=== PATIENT | female | born 1955 | race Caucasian/White ===

== ENCOUNTER 2023-08-24 20:24 | Emergency (ER) | payer MEDICARE, SELFPAY ==
[2023-08-24 20:26] VITALS: BP 150/90
--- NOTE | 2023-08-24 21:23 | ED.SKININJ ---
HPI-Injury
General
Chief Complaint: Bite
Time Seen by Provider: 08/24/23 20:35
Travel History
Have you had any contact with someone who has COVID-19?: No
Do you have any symptoms of coronavirus? Fever > 100 degrees, chills, cough, shortness of breath, sore throat, loss of taste or smell, muscle aches, or headache?: No
History of Present Illness-Injury
Initial Injury comments:
68-year-old female presents due to itching, redness, and swelling of the right dorsal hand as well as the right medial elbow after being bitten by a bug on the hand yesterday. Denies any fevers or chills. She was prescribed steroids by her primary
care physician but she is apprehensive to take these. She has been using Benadryl 25 mg every 6 hours without relief. No fevers
Past History
Social History
Tobacco: Non-smoker
Alcohol: None
Personal: Single
Living: alone
Employment: Employed (sales)
Review of Systems
Review of Systems
Allergies reviewed?: Yes
All Other Systems: ROS reviewed and negative except as documented in HPI and ROS
Phy Exam
Physical Exam
Physical Exam:
GEN: Well appearing, NAD, WDWN
HEENT: Oral mucosa moist, no scleral icterus
Cardiac: Regular rate
Lung: No respiratory distress, no tachypnea
MSK: No gross deformity or injuries
Skin: Good color, no pallor or jaundice. Diffuse erythema of the right dorsal hand does not extend into the fingers or beyond the wrist, no volar swelling. Erythema and soft swelling of the right medial elbow, right elbow range of motion is
normal, no olecranon bursitis
Neuro: AO x3, moves all extremities freely
Psych: Calm, cooperative
Course
Vital Signs
Initial and Last Documented VS:
Initial Vital Signs
Temp Pulse Resp BP Pulse Ox
98.7 F 88 22 150/90 96
08/24/23 20:26 08/24/23 20:26 08/24/23 20:26 08/24/23 20:26 08/24/23 20:26
Last Documented Vital Signs
Temp Pulse Resp BP Pulse Ox
98.7 F 88 22 150/90 96
08/24/23 20:26 08/24/23 20:26 08/24/23 20:26 08/24/23 20:26 08/24/23 20:26
MDM/Problems Addressed
MDM/Problems Addressed:
Advised the patient that this is likely a histamine reaction and she should try the steroids given that Benadryl has not helped, no indication for antibiotics
*Critical Care Note
Total Time (30-74mins, 75-104mins- exclusive of procedures): Not Applicable
ED Attending Note
-
Portions of this chart may have been created with voice recognition software.� Occasional wrong word or��sound alike� substitutions may have occurred due to the inherent limitations of voice recognition software.
Discharge Plan
Departure
Patient Disposition: Home (Routine Discharge)
Date of Disposition: 08/24/23
Time of Disposition: 21:23
Patient with high blood pressure during this ER visit?: No
Discharge Problem:
Insect bite
Instructions: Insect Bites and Stings ED
Activity Restrictions/Additional Instructions:
Please take the steroids as your were prescribed
Interventions
Interventions:
*Risk Screen - Suicide Last Done: 08/24/23 20:26
*Neglect/Abuse Screening Last Done: 08/24/23 20:26
*Nursing Disposition Last Done: 08/24/23 21:39
ED-Skin Assessment Last Done: 08/24/23 20:50
Discharge Date and Time
Discharge Date/Time: 08/24/23 21:39
Print Language: DIVEHI
== END 2023-08-24 21:39 | disposition home or self-care (01) ==
LOC: EMR 20:24
PROVIDERS: EMERGENCY PHYSICIAN Emergency Medicine; FAMILY PHYSICIAN Family Medicine
DX: R22.31 Localized swelling, mass and lump, right upper limb (principal); L29.9 Pruritus, unspecified; L53.9 Erythematous condition, unspecified; M25.421 Effusion, right elbow; W57.XXXA Bitten or stung by nonvenomous insect and other nonvenomous arthropods, initial encounter; Z88.0 Allergy status to penicillin; Z88.2 Allergy status to sulfonamides; Z88.8 Allergy status to other drugs, medicaments and biological substances; Z88.1 Allergy status to other antibiotic agents; Z91.040 Latex allergy status
CPT/HCPCS: 99281

== ENCOUNTER 2023-08-25 12:12 | Emergency (ER) | payer MEDICARE, OTHER, SELFPAY ==
[2023-08-25 12:15] VITALS: BP 151/78
--- NOTE | 2023-08-25 12:52 | ED.GENMED ---
History of Present Illness
<Lashell Saravia PA-C - Last Filed: 08/25/23 18:01>
General
Chief Complaint: Skin Problem
Source: patient
Exam Limitations: none
Time Seen by Provider: 08/25/23 12:38
Nursing documentation reviewed up to this point in time: agreed with
Travel History
Have you had any contact with someone who has COVID-19?: No
Do you have any symptoms of coronavirus? Fever > 100 degrees, chills, cough, shortness of breath, sore throat, loss of taste or smell, muscle aches, or headache?: No
History of Present Illness
History of Present Illness:
Patient is a 68-year-old female presenting for evaluation of right hand redness and swelling. Patient was seen in the emergency department yesterday and evaluated for similar symptoms. She does believe that she was bitten by some sort of bug 2
days ago. Starting yesterday she noticed worsening swelling and redness of her right hand. She is having significant itching associated with this redness. She also has a area of swelling that she noticed on the medial side of her right elbow.
Patient was seen in urgent care yesterday morning prior to emergency department visit and prescribed a Medrol Dosepak. She does not wish to take the steroids if she can avoid it. She was instructed to take Benadryl every 4 hours. She does state
that swelling on right hand is improved since yesterday but the area on her right elbow may have worsened slightly.
Patient denies any fever, chills, pain in right upper extremity, numbness/tingling right upper extremity, shortness of breath or difficulty swallowing.
Patient does state that she is very sensitive to environmental triggers and has many allergic reactions
Past History
<Lashell Saravia PA-C - Last Filed: 08/25/23 18:01>
Social History
Tobacco: Non-smoker
Alcohol: None
Personal: Single
Living: alone
Employment: Employed (sales)
Review of Systems
<Lashell Saravia PA-C - Last Filed: 08/25/23 18:01>
Review of Systems
Allergies reviewed?: Yes
All Other Systems: ROS reviewed and negative except as documented in HPI and ROS
Phy Exam
<Lashell Saravia PA-C - Last Filed: 08/25/23 18:01>
Physical Exam
Physical Exam:
Vitals: Patient's vital signs are stable. Afebrile
General: Patient is well appearing, no acute distress. Nontoxic-appearing
Skin: Mild edema and erythema noted to right dorsal hand and right volar wrist. Large erythematous hive noted to medial aspect of right elbow. No overlying warmth, tenderness, or red streaking noted to right upper extremity. Range of motion is
fully intact in RUE without any joint tenderness. Great distal pulses. Sensation fully intact.
Head: Normocephalic, atraumatic
Eyes: Sclera nonicteric.
Throat: Protecting airway
Neck: Normal ROM, no cervical spine tenderness, no meningismus. Trachea midline
Cardiac: Regular rate and rhythm, no murmurs.
Pulm: Normal respiratory effort, no wheezes, rales, rhonchi heard on exam.
Abdomen: No abdominal tenderness.
Extremities: No evidence of cyanosis or edema. Great distal pulses of the right upper extremity. Sensation fully intact in right upper extremity
Neuro: AAOx3. CN II-XII intact. No focal neurologic deficits.
Psychiatric: Normal affect.
Course
<Lashell Saravia PA-C - Last Filed: 08/25/23 18:01>
Vital Signs
Initial and Last Documented VS:
Initial Vital Signs
Temp Pulse Resp BP Pulse Ox
98.2 F 94 18 151/78 98
08/25/23 12:15 08/25/23 12:15 08/25/23 12:15 08/25/23 12:15 08/25/23 12:15
Last Documented Vital Signs
Temp Pulse Resp BP Pulse Ox
98.2 F 94 18 151/78 98
08/25/23 12:15 08/25/23 12:15 08/25/23 12:15 08/25/23 12:15 08/25/23 12:15
<Orlando Salguero DO - Last Filed: 08/25/23 13:18>
Vital Signs
Initial and Last Documented VS:
Initial Vital Signs
Temp Pulse Resp BP Pulse Ox
98.2 F 94 18 151/78 98
08/25/23 12:15 08/25/23 12:15 08/25/23 12:15 08/25/23 12:15 08/25/23 12:15
Last Documented Vital Signs
Temp Pulse Resp BP Pulse Ox
98.2 F 94 18 151/78 98
08/25/23 12:15 08/25/23 12:15 08/25/23 12:15 08/25/23 12:15 08/25/23 12:15
<Lashell Saravia PA-C - Last Filed: 08/25/23 18:01>
MDM/Problems Addressed
Differential Diagnosis Includes:
Not limited to: Allergic reaction, hide, cellulitis, eczema, contact dermatitis
MDM/Problems Addressed:
68-year-old female presenting with redness and swelling of right hand and right elbow following bug bite. Symptoms have improved slightly with Benadryl. Patient concerned about possible infection. Patient afebrile with stable vital signs.
Physical exam as above. She does have some mild erythema and edema of her right dorsal hand and right volar wrist. There is a large hive noted at the medial aspect of the right elbow. There is no overlying warmth or significant tenderness of
right upper extremity. There is no red streaking of right upper extremity to suggest cellulitis or infectious process. Full range of motion joints without any pain�do not suspect a septic arthritis. No evidence of intraoral swelling or difficulty
breathing.
Suspect likely localized histamine/allergic reaction. No indication for antibiotic use at this time. Did discuss starting Medrol Dosepak as prescribed by urgent care. She can continue with [id number] Benadryl and try [id number]
hydrocortisone and/or anti-itch cream. Advised patient to avoid scratching as to not introduce bacteria to skin and cause infection. Return precautions discussed with patient at length. Patient comfortable with plan. All questions answered.
Chronic conditions affecting care:
N/A
Acute Exacerbation and/or Progression of Chronic Illness:
N/A
<Lashell Saravia PA-C - Last Filed: 08/25/23 18:01>
*Pulse Oximetry
Patient hypoxic: no
*EKG
Interpreted by ED Provider?: NA
*Glass Mould Cleaner Interpretation
Rate: Glass Mould Cleaner- N/A
*Critical Care Note
Total Time (30-74mins, 75-104mins- exclusive of procedures): Not Applicable
ED Attending Note
<Lashell Saravia PA-C - Last Filed: 08/25/23 18:01>
-
Portions of this chart may have been created with voice recognition software.� Occasional wrong word or��sound alike� substitutions may have occurred due to the inherent limitations of voice recognition software.
<Orlando Salguero DO - Last Filed: 08/25/23 13:18>
ED Attending Note
Patient seen and examined by attending physician: Yes
I performed the substantive portion of visit, reviewed & personally made and approve the management plan that is documented in note by myself or ALPESH.: Yes
ED Attending Note:
I have seen and evaluated the patient with a [id number] encounter. I have spoken to the advance practicer provider and involved in the medical history, the physical exam, medical decision making.
Evaluation and management service: agree unless noted differently below.
Results interpretation: agree unless noted differently below.
Focused HPI: 68-year-old female presenting with redness and swelling to her right hand. She was here yesterday and diagnosed with allergic reaction to a bug bite. She thinks the swelling has gotten worse but the color has gotten a little more red.
She went to make sure it is not infected
Physical exam: Sitting in the chair comfortably. Mild edema noted to dorsum of right hand. Range of motion intact. Very mild erythema which is likely related to her persistent scratching. Hive noted to medial aspect of right forearm
Medical Decision Making: Discussed taking steroids that she was initially prescribed but patient is hesitant due to its side effect profile. We discussed that there is no evidence of cellulitis at the moment and antibiotics would not be helpful. I
did caution her that she continues to scratch the area and she could break the skin and cause the cellulitis.
Discharge Plan
Departure
Patient Disposition: Home (Routine Discharge)
Date of Disposition: 08/25/23
Time of Disposition: 13:25
Patient with high blood pressure during this ER visit?: Yes
Condition: Good
Covid-19: Not Applicable
Discharge Problem:
Hive, Insect bite
Instructions: Hives, Insect Bites and Stings ED
Referrals:
Jacy Tineo DO [Family Provider] -
Activity Restrictions/Additional Instructions:
RETURN TO THE EMERGENCY DEPARTMENT WITH ANY CHEST PAIN OR SHORTNESS OF BREATH, ORAL SWELLING, DIFFICULTY BREATHING, OR ANY SIGNS OF INFECTION INCLUDING: FEVER, CHILLS, RED STREAKING OF RIGHT ARM, INTRACTABLE PAIN, WORSENING REDNESS/SWELLING
-As discussed�you can continue to take Benadryl every 4 hours. You can take the Medrol Dosepak that was prescribed by urgent care to improve symptoms. You can try OTC anti-itch cream/hydrocortisone. You can try Sarna lotion [id number] for
itch.
-You should follow-up with her primary care provider in a week to ensure symptoms are improving/for further evaluation and management.
Interventions
Interventions:
*ED COVID-19 Vaccine History Last Done: 08/25/23 12:15
*Nursing Disposition Last Done: 08/25/23 13:34
Discharge Date and Time
Discharge Date/Time: 08/25/23 13:35
Print Language: AUSTR[place]IAN
== END 2023-08-25 13:35 | disposition home or self-care (01) ==
LOC: EMR 12:12
PROVIDERS: EMERGENCY PHYSICIAN Student in an Organized Health Care Education/Training Program; FAMILY PHYSICIAN Family Medicine
DX: L50.8 Other urticaria (principal); W57.XXXA Bitten or stung by nonvenomous insect and other nonvenomous arthropods, initial encounter; R03.0 Elevated blood-pressure reading, without diagnosis of hypertension
CPT/HCPCS: 99282